=== PATIENT | female | born 1940 | race Caucasian/White ===

== ENCOUNTER 2016-12-29 10:20 | Outpatient (CLI) | payer MEDICARE, MEDICAID ==
[~2016-12-29] VITALS: Ht 165.1 cm; Wt 80.3 kg
[2016-12-29] MEDS ORDERED: POTA10CA43 PO (10:37)
[2016-12-29] MEDS ORDERED: LEVO50TA6 PO (10:37)
[2016-12-29] MEDS ORDERED: FISH1CAP15 PO (10:37)
[2016-12-29] MEDS ORDERED: VITA1CAP16 PO (10:37)
[2016-12-29] MEDS ORDERED: ASPI-999 PO (10:37)
[2016-12-29 10:48] VITALS: BP 143/84
[2016-12-29 11:24] LABS: BASOPHILS % (AUTO) 0 % (0-10); EOSINOPHILS # (AUTO) 0.4 10^3/uL (0.0-0.3); EOSINOPHILS % (AUTO) 4 % (0-10); LYMPHOCYTES # (AUTO) 3.1 X 10^3 (1.0-4.0); LYMPHOCYTES % (AUTO) 26 % (12-44); MEAN CORPUSCULAR HEMOGLOBIN 31 PG (25-34); MEAN CORPUSCULAR HGB CONC 33 G/DL (32-36); MEAN CORPUSCULAR VOLUME 95 FL (80-99); MEAN PLATELET VOLUME 11.7 FL (7.4-10.4); MONOCYTES # (AUTO) 1.5 X 10^3 (0.0-1.0); MONOCYTES % (AUTO) 13 % (0-12); NEUTROPHILS # (AUTO) 6.7 X 10^3 (1.8-7.8); NEUTROPHILS % (AUTO) 57 % (42-75); PLATELET COUNT 197 10^3/uL (130-400); RED BLOOD COUNT 4.63 10^6/uL (4.35-5.85); RED CELL DISTRIBUTION WIDTH 12.9 % (10.0-14.5); WHITE BLOOD COUNT 11.6 10^3/uL (4.3-11.0)
[2016-12-29 11:47] LABS: ANION GAP 11 MMOL/L (5-14); BLOOD UREA NITROGEN 9 MG/DL (7-18); BUN/CREATININE RATIO 13; CALCIUM 9.9 MG/DL (8.5-10.1); CARBON DIOXIDE 26 MMOL/L (21-32); CHLORIDE 105 MMOL/L (98-107); GFR ESTIMATED > 60; GLUCOSE 107 MG/DL (70-105); POTASSIUM 4.1 MMOL/L (3.6-5.0); SODIUM 142 MMOL/L (135-145)
== END 2016-12-29 12:37 | disposition home or self-care (01) ==
LOC: PREOP 10:20
PROVIDERS: ATTEND Orthopaedic Surgery
DX: Z01.812 Encounter for preprocedural laboratory examination (principal); Z11.2 Encounter for screening for other bacterial diseases; S82.899A Other fracture of unspecified lower leg, initial encounter for closed fracture; X58.XXXA Exposure to other specified factors, initial encounter
CPT/HCPCS: 36415; 80048; 85025; 87081

== ENCOUNTER 2017-01-04 05:59 | Day surgery (SDC) | payer MEDICARE, MEDICAID ==
[~2017-01-04] VITALS: Ht 165.1 cm; Wt 80.3 kg
[~2017-01-04 05:59] MED LIST: ASPI-999 PO; FISH1CAP15 PO; LEVO50TA6 PO; POTA10CA43 PO; VITA1CAP16 PO
[2017-01-04 06:20] VITALS: BP 167/55
[2017-01-04] MEDS ORDERED: LACTATED RINGERS 1,000 ML IV PRN (06:22)
[2017-01-04] MEDS ORDERED: FLUMAZENIL (ROMAZICON) 0.1 MG/ML 5 ML VIAL ONE (06:43)
[2017-01-04] MEDS ORDERED: LIDOCAINE PF 0.5% 50 ML (XYLOCAINE) VIAL ONE (06:43)
[2017-01-04] MEDS ORDERED: MIDAZOLAM 2 MG/2 ML (VERSED) VIAL ONE (06:43)
[2017-01-04] MEDS ORDERED: proPOfol 200 MG/20 ML (DIPRIVAN) VIAL IV ONE (06:43)
[2017-01-04] MEDS ORDERED: fentaNYL INJECTION 100 MCG/2 ML AMP ONE ×2 (06:43→08:49)
[2017-01-04] MEDS ORDERED: SEVOFLURANE (ULTANE) 15 ML INHAL SOLN ONE ×7 (06:43→08:59)
[2017-01-04] MEDS ORDERED: ONDANSETRON 4 MG/2 ML (SDV) Z0FRAN ONE ×2 (06:43→06:55)
[2017-01-04] MEDS ORDERED: BUPIVACAINE 0.5% 30 ML (SENSORCAINE) VIAL ONE (07:03)
[2017-01-04] MEDS ORDERED: CIPROFLOXACIN IV 400MG/200ML 200 ML IV ONE (07:12)
--- NOTE | 2017-01-04 07:20 | Progress Note-Pre Operative ---
Pre-Operative Progress Note H&P Reviewed The H&P was reviewed, patient examined and no changes noted. Date Seen by Provider: Jan 04, 2017 Time Seen by Provider: 07:11 Date H&P Reviewed: Jan 04, 2017 Time H&P Reviewed: 07:07 Pre-Operative Diagnosis: left ankle medial and lateral malleolus fractures, closed, displaced ELIEZER LEAL MD Jan 04, 2017 07:20
--- NOTE | 2017-01-04 07:22 | Progress Note-Post Operative ---
Post-Operative Progess Note Surgeon (s)/Patient Ambassador (s) Surgeon ELIEZER LEAL MD Patient Ambassador: None Pre-Operative Diagnosis left ankle medial and lateral malleolus fractures, closed, displaced Post-Operative Diagnosis left ankle medial and lateral malleolus fractures, closed, displaced Procedure & Operative Findings Date of Procedure 01/04/17 Procedure Performed/Findings Open reduction and internal fixation of left medial and lateral malleoli Anesthesia Type GETA Estimated Blood Loss Estimated blood loss (mL): 50 ml Specimens/Packing Specimens Removed none Packing: none ELIEZER LEAL MD Jan 04, 2017 07:22
[2017-01-04] MEDS ORDERED: HYDR4TAB49 PO (07:24)
[2017-01-04] MEDS ORDERED: HYDROmorphone (DILAUDID) 4 MG TAB PO PRN (07:30)
[2017-01-04] MEDS ORDERED: CATHETER FLUSH 10 ML SYR IV PRN (07:30)
[2017-01-04] MEDS ORDERED: CIPROFLOXACIN 400 MG/D5W 200 ML (PRE-MIX) IV ONE (07:30)
[2017-01-04] MEDS ORDERED: LABETALOL HCL 20 MG/4 ML VIAL ONE (08:15)
[2017-01-04] MEDS ORDERED: ONDANSETRON 4 MG/2 ML (SDV) Z0FRAN IVP PRN (09:00)
[2017-01-04] MEDS ORDERED: LACTATED RINGERS 2,000 ML IV ONE (09:00)
[2017-01-04] MEDS: morphine INJ 10 MG/ML 1ML (SYR OR VIAL) IVP PRN ×2 (09:35→09:41)
[2017-01-04 10:10] VITALS: BP 183/91
[2017-01-04 10:40] VITALS: BP 165/80
[2017-01-04 11:10] VITALS: BP 146/81
--- NOTE | 2017-01-04 11:16 | Diagnostic Imaging Report ---
INDICATION: Left ankle pain. FINDINGS: Three views of the left ankle were obtained during open reduction and internal fixation of the left ankle fractures. Two screws are seen fusing the medial malleolus in good alignment. There is a plate with multiple screws fusing the distal fibular fracture in good alignment. 12 seconds of fluoroscopy time was used in Surgery. IMPRESSION: Anatomic alignment status post ORIF of the left ankle fractures. Dictated by: Dictated on workstation # [id number]
--- NOTE | 2017-01-04 12:46 | OPERATIVE REPORT ---
PROCEDURE PHYSICIAN: ELIEZER LEAL DATE OF PROCEDURE: 01/04/2017 PREOPERATIVE DIAGNOSIS: 1. Closed displaced left medial malleolus fracture. 2. Closed displaced left lateral malleolus fracture. POSTOPERATIVE DIAGNOSIS: 1. Closed displaced left medial malleolus fracture. 2. Closed displaced left lateral malleolus fracture. PROCEDURES: 1. Open reduction internal fixation left medial malleolus. 2. Open reduction and internal fixation of left lateral malleolus. SURGEON: Dr. Leal. SAND DRIER: None. ANESTHESIA: General endotracheal by Scott Chen CRNA. TOURNIQUET TIME: 57 minutes at 300 mmHg. ESTIMATED BLOOD LOSS: 50 mL. DRAINS: None. COMPLICATIONS: None. MATERIALS: Synthes 6 hole 1/3rd tubular plate and two 4 partially threaded cancellous screws medially. The patient was transported to recovery room in awake and in stable condition. POSTOPERATIVE PLAN: Protected activities for 6 to 8 weeks. STATEMENT OF MEDICAL NECESSITY: The patient is a 76-year-old female who a week ago fell at the [place] [facility] by report and presented to the [place] emergency room where she was found to have a trimalleolar fracture-dislocation which by report was closed and neurovascularly intact. She underwent closed reduction in the emergency department in [place], was placed in a splint and referred for definitive treatment as there is no orthopedic physician in [place] anymore. The patient denied paresthesias. Postreduction radiographs revealed well aligned mortise. Due to the displaced and unstable nature of the fracture, it was recommended that the patient undergo operative fixation. PROCEDURE: After risks and benefits of the procedure were discussed and questions were answered an informed consent was signed and placed on chart. The operative site was confirmed in the preoperative holding and initialed by the surgeon. The patient was then transported to the operating room. After adequate levels of general endotracheal anesthetic were obtained, a timeout was called confirming the operative site. The left lower extremity was prepped and draped usual sterile fashion. With the leg elevated, the tourniquet was inflated to 300 mmHg. A standard lateral approach was utilized over the distal fibula. The underlying soft tissues were carefully dissected. The fracture site was identified and reduced anatomically after irrigating the fracture site. A single 3.5 fully threaded cortical screw was placed in a lag fashion and a 6 hole 1/3rd tubular plate was then placed with 3 cancellous screws placed distally and 3 cortical screws placed proximally all with good purchase obtained. Fluoroscopy in AP and lateral planes revealed well reduced fracture and well-placed hardware. This wound was then irrigated and incision was made medially, extending distally. The medial malleolus fragment was small but exposed and two 4 partially threaded cancellous screws were placed across fracture site with good purchase obtained. Viewing intra-articularly, there was no intra-articular penetration. Fluoroscopy in AP and lateral planes revealed well-placed hardware with a stable construct. While viewing fluoroscopically, the posterior aspect was stressed and the posterior fragment was found to be stable. The wounds were then copiously irrigated. 2-0 Vicryl was used to reapproximate the deep subcutaneous tissue on the medial and lateral incisions and both skin incisions were closed with 4-0 nylon in horizontal mattress interrupted fashion. The incisions were infiltrated with plain Marcaine. The tourniquet was deflated prior to wound closure medially. A soft dressing was applied followed by posterior splint with a U. The patient was then transported to the recovery room, awake and in stable condition. Job ID: [id number] Dictated Date: 01/04/2017 09:22:45 Clerk Guide Date: 01/04/2017 12:26:50 / margarita
--- OUTSIDE RECORDS SUMMARY | 2017-01-04 17:45 | XMS REPORT ---
Author CARMENZA Joiner Organization [employer] Address Unknown Phone Unavailable Care Team Providers Care Optical Goods Drilling Machine Operator Name Role Phone CARMENZA CHOWDARY CP Unavailable Allergies, Adverse Reactions, Alerts Substance Reaction Event Type sulfa drugs Info Not Available Drug Allergy Penicillin G Sodium Info Not Available Drug Allergy Codeine Sulfate Info Not Available Drug Allergy Problems Problem Type Condition Code Onset Dates Condition Status Assessment Caries K02.9 Active Medications Medication Code System Code Instructions Start Date End Date Status Dosage Aspir-[address] [facility] [id number] not defined Thyroid [facility] [id number] not defined Potassium NDC 0 not defined Procedures Procedure Coding System Code Date EXTRAC ERUPTED TOOTH/EXPOSED ROOT CPT-4 D7140 September 29, 2015 SURG REMOVAL ERUPTED TOOTH CPT-4 D7210 September 22, 2015 EXTRAC ERUPTED TOOTH/EXPOSED ROOT CPT-4 D7140 September 22, 2015 SURG REMOVAL ERUPTED TOOTH CPT-4 D7210 September 22, 2015 Vital Signs Date/Time: September 29, 2015 Blood Pressure Diastolic 72 mmHg Blood Pressure Systolic 157 mmHg Results No Known Results Summary Purpose [employer] Submission
--- OUTSIDE RECORDS SUMMARY | 2017-01-04 17:46 | XMS REPORT ---
Author CARMENZA Joiner [facility] [employer] Address Unknown Phone Unavailable Care Team Providers Care Account Manager Relief Name Role Phone CARMENZA CHOWDARY CP Unavailable Allergies, Adverse Reactions, Alerts Substance Reaction Event Type sulfa drugs Info Not Available Drug Allergy Penicillin G Sodium Info Not Available Drug Allergy Codeine Sulfate Info Not Available Drug Allergy Problems Problem Type Condition Code Onset Dates Condition Status Assessment Dental caries K02.9 Active Assessment Dental examination Z01.20 Active Medications Medication Code System Code Instructions Start Date End Date Status Dosage Thyroid NDC [address]-20 not defined Potassium NDC 0 not defined Procedures Procedure Coding System Code Date EXTRAC ERUPTED TOOTH/EXPOSED ROOT CPT-4 D7140 January 18, 2016 EXTRAC ERUPTED TOOTH/EXPOSED ROOT CPT-4 D7140 January 18, 2016 INTRAORL-PERIAPICAL 1 FILM 94800 CPT-4 D0220 January 18, 2016 Vital Signs Date/Time: January 18, 2016 Blood Pressure Diastolic 71 mmHg Blood Pressure Systolic 145 mmHg Results No Known Results Summary Purpose [employer] Submission
--- OUTSIDE RECORDS SUMMARY | 2017-01-04 17:46 | XMS REPORT ---
Author Author CARMENZA CHOWDARY [facility] Address Unknown Care Team Providers Care Transportation Attendant Name Role Phone CARMENZA CHOWDARY Unavailable PROBLEMS Type Condition ICD9-CM Code [id number] Code Onset Dates Condition Status SNOMED Code Assessment Dental examination Z01.20 Jan, Active [id number] ALLERGIES Substance Reaction Event Type Date Status sulfa drugs Unknown Drug Allergy Jan, Active Penicillin G Sodium Unknown Drug Allergy Jan, Active Codeine Sulfate Unknown Drug Allergy Jan, Active SOCIAL HISTORY No smoking Hx information available PLAN OF CARE VITAL SIGNS Blood pressure systolic 153 mmHg 2016-03-02 Blood pressure diastolic 79 mmHg 2016-03-02 MEDICATIONS Medication Instructions Dosage Frequency Start Date End Date Duration Status Vitamin B Complex Active Fish Oil Active Potassium Active Levothyroxine Sodium Active RESULTS No Results PROCEDURES Procedure Date Ordered Related Diagnosis Body Site COMP ORAL EVALUATION - NEW/EST PT Mar 02, 2016 BITEWINGS - FOUR FILMS Mar 02, 2016 PANORAMIC FILM SEE ALSO CODE [id number] Mar 02, 2016 IMMUNIZATIONS No Known Immunizations
--- OUTSIDE RECORDS SUMMARY | 2017-01-04 17:46 | XMS REPORT ---
Author JOVAN Barcenas Organization [employer] Address Unknown Phone Unavailable Care Team Providers Care Technical Operations Specialist Name Role Phone JOVAN SHEPHERD CP Unavailable Allergies, Adverse Reactions, Alerts Substance Reaction Event Type sulfa drugs Info Not Available Drug Allergy Penicillin G Sodium Info Not Available Drug Allergy Codeine Sulfate Info Not Available Drug Allergy Problems Problem Type Condition Code Onset Dates Condition Status Assessment Encounter for dental examination Z01.20 Active Medications Medication Code System Code Instructions Start Date End Date Status Dosage Aspir-81 [facility] [id number] not defined Potassium NDC 0 not defined Thyroid [facility] [id number] not defined Procedures Procedure Coding System Code Date INTRAORL-PERIAPICAL 1 FILM 06281 CPT-4 D0220 Jul 09, 2015 INTRAORL-PERIAPICAL 1 FILM 10622 CPT-4 D0220 Jul 09, 2015 LTD ORAL EVALUATION - PROBLEM FOCUS CPT-4 D0140 Jul 09, 2015 BITEWING - SINGLE FILM CPT-4 D0270 Jul 09, 2015 Vital Signs Date/Time: Jul 09, 2015 Blood Pressure Diastolic 74 mmHg Blood Pressure Systolic 154 mmHg Results No Known Results Summary Purpose [employer] Submission
--- OUTSIDE RECORDS SUMMARY | 2017-01-04 17:46 | XMS REPORT ---
Author JOVAN Barcenas Organization [employer] Address Unknown Phone Unavailable Care Team Providers Care Marine Engine Machinist Apprentice Name Role Phone JOVAN SHEPHERD CP Unavailable Allergies, Adverse Reactions, Alerts Substance Reaction Event Type sulfa drugs Info Not Available Drug Allergy Penicillin G Sodium Info Not Available Drug Allergy Codeine Sulfate Info Not Available Drug Allergy Problems Problem Type Condition Code Onset Dates Condition Status Assessment Dental caries K02.9 Active Medications Medication Code System Code Instructions Start Date End Date Status Dosage Aspir-81 [facility] [id number] not defined Potassium NDC 0 not defined Thyroid [facility] [id number] not defined Procedures Procedure Coding System Code Date EXTRAC ERUPTED TOOTH/EXPOSED ROOT CPT-4 D7140 Jul 09, 2015 Vital Signs Date/Time: Jul 16, 2015 Blood Pressure Diastolic 81 mmHg Blood Pressure Systolic 131 mmHg Results No Known Results Summary Purpose [employer] Submission
--- OUTSIDE RECORDS SUMMARY | 2017-01-04 17:46 | XMS REPORT ---
Author CARMENZA Joiner Organization [employer] Address Unknown Phone Unavailable Care Team Providers Care Dispatcher Tugboat Name Role Phone CARMENZA CHOWDARY CP Unavailable Allergies, Adverse Reactions, Alerts Substance Reaction Event Type sulfa drugs Info Not Available Drug Allergy Penicillin G Sodium Info Not Available Drug Allergy Codeine Sulfate Info Not Available Drug Allergy Problems Problem Type Condition Code Onset Dates Condition Status Assessment Dental examination Z01.20 Active Medications No Known Medications Procedures Procedure Coding System Code Date INTRAORL-PERIAPICAL 1 FILM 27323 CPT-4 D0220 September 22, 2015 Billing Notes on claim CPT-4 EC109 September 22, 2015 LTD ORAL EVALUATION - PROBLEM FOCUS CPT-4 D0140 September 22, 2015 Vital Signs Date/Time: September 22, 2015 Blood Pressure Diastolic 79 mmHg Blood Pressure Systolic 158 mmHg Results No Known Results Summary Purpose [employer] Submission
== END 2017-01-04 11:30 | disposition home or self-care (01) ==
LOC: SDC 05:59
PROVIDERS: ATTEND Orthopaedic Surgery
DX: S82.62XA Displaced fracture of lateral malleolus of left fibula, initial encounter for closed fracture (principal); S82.52XA Displaced fracture of medial malleolus of left tibia, initial encounter for closed fracture; E03.9 Hypothyroidism, unspecified; Z79.899 Other long term (current) drug therapy; C34.90 Malignant neoplasm of unspecified part of unspecified bronchus or lung; J44.9 Chronic obstructive pulmonary disease, unspecified; Z87.891 Personal history of nicotine dependence; G43.909 Migraine, unspecified, not intractable, without status migrainosus

== ENCOUNTER → 2019-01-17 | Outpatient (CLI) | payer MEDICARE, MEDICAID ==
[~2019-01-17] MED LIST changes: +HYDR4TAB49 PO
--- NOTE | 2019-01-17 09:31 | Diagnostic Imaging Report ---
Patient History: SHORTNESS OF BREATH, COUGH. Technique: Two views of the chest Comparison: None FINDINGS: The lung volumes are normal. No focal consolidation is seen. Bibasilar opacities are noted representing atelectasis. No large pleural effusion or pneumothorax is seen. The cardiomediastinal silhouette is normal in size and contour. No acute osseous abnormality is seen. IMPRESSION: No focal consolidations. Mild bibasilar atelectasis. Dictated by: Dictated on workstation # [id number]
[2019-01-17 10:42] LABS: HEMATOCRIT 46 % (35-52); HEMOGLOBIN 14.7 G/DL (11.5-16.0); MEAN CORPUSCULAR HEMOGLOBIN 30 PG (25-34); MEAN CORPUSCULAR HGB CONC 32 G/DL (32-36); MEAN CORPUSCULAR VOLUME 95 FL (80-99); PLATELET COUNT 210 10^3/uL (130-400); RED CELL DISTRIBUTION WIDTH 12.9 % (10.0-14.5); WHITE BLOOD COUNT 9.6 10^3/uL (4.3-11.0)
[2019-01-17 10:43] LABS: MEAN PLATELET VOLUME 11.8 FL (7.4-10.4)
[2019-01-17 10:48] LABS: BASOPHILS % (AUTO) 0 % (0-10); EOSINOPHILS # (AUTO) 0.4 10^3/uL (0.0-0.3); EOSINOPHILS % (AUTO) 4 % (0-10); LYMPHOCYTES # (AUTO) 3.5 X 10^3 (1.0-4.0); LYMPHOCYTES % (AUTO) 37 % (12-44); MONOCYTES # (AUTO) 0.7 X 10^3 (0.0-1.0); MONOCYTES % (AUTO) 7 % (0-12); NEUTROPHILS % (AUTO) 52 % (42-75)
[2019-01-17 11:04] LABS: ALANINE AMINOTRANSFERASE 17 U/L (0-55); ALKALINE PHOSPHATASE 51 U/L (40-136); BILIRUBIN,TOTAL 0.4 MG/DL (0.1-1.0); BUN/CREATININE RATIO 19; CALCIUM 9.7 MG/DL (8.5-10.1); CARBON DIOXIDE 27 MMOL/L (21-32); CHLORIDE 104 MMOL/L (98-107); CREATININE SERUM 0.62 MG/DL (0.60-1.30); GFR ESTIMATED > 60; GLUCOSE 121 MG/DL (70-105); POTASSIUM 4.2 MMOL/L (3.6-5.0); SODIUM 144 MMOL/L (135-145)
[2019-01-17 11:05] LABS: ALBUMIN 4.5 GM/DL (3.2-4.5); BAND NEUTROPHILS 3 %; EOSINOPHILS % (MANUAL) 5 %; LYMPHOCYTES % (MANUAL) 35 %; MONOCYTES % (MANUAL) 6 %; TOTAL PROTEIN 7.1 GM/DL (6.4-8.2)
[2019-01-17 11:06] LABS: NEUTROPHILS % (MANUAL) 51 %; RBC MORPH NORMAL
== END ==
LOC: LAB FS 09:12
PROVIDERS: ATTEND Family Medicine
DX: J98.11 Atelectasis (principal)
CPT/HCPCS: 36415; 71046; 80053; 83036; 83880; 85007; 85027

== ENCOUNTER → 2019-01-29 | Outpatient (CLI) | payer MEDICARE, MEDICAID | LOC: CARD 10:10 | PROVIDERS: ATTEND Family Medicine | DX: I34.0 Nonrheumatic mitral (valve) insufficiency (principal) | CPT/HCPCS: 93306 ==

== ENCOUNTER → 2019-02-06 | Outpatient (CLI) | payer MEDICARE, MEDICAID ==
[~2019-02-06] MED LIST changes: +CATHETER FLUSH 10 ML SYR IV PRN; +HOLD METFORMIN - RECEIVED CONTRAST 20 ML VIAL IV SCH; +IOHEXOL 350 MG/ML 100 ML (OMNIPAQUE 350) VIAL IV ONE; +NS 100 ML (IVPB) BAG IV ONE
[2019-02-06 13:17] LABS: BUN/CREATININE RATIO 15; CREATININE SERUM 0.66 MG/DL (0.60-1.30); GFR ESTIMATED > 60
--- NOTE | 2019-02-06 14:15 | Diagnostic Imaging Report ---
PROCEDURE: CT chest with contrast only. TECHNIQUE: Multiple contiguous axial images were obtained through the chest after administration of intravenous contrast. Auto Exposure Controls were utilized during the CT exam to meet ALARA standards for radiation dose reduction. INDICATION: Shortness of breath and right-sided chest pain for one month. Patient has prior history of lung cancer on the left. COMPARISON: No prior studies are available for comparison. FINDINGS: No axillary lymphadenopathy is seen. No definite hilar or mediastinal lymphadenopathy is detected. There is volume loss on the left. It appears to be secondary to left upper lobectomy. No pericardial or pleural fluid is detected. No parenchymal infiltrate, nodule, or mass is detected. Mildly prominent subpleural interstitial markings are seen, likely owing to scarring. The upper abdomen is unremarkable. IMPRESSION: Postop changes of the left chest. No thoracic lymphadenopathy or evidence of recurrent mass is seen. Dictated by: Dictated on workstation # [id number]
== END ==
LOC: RAD FS 12:27
PROVIDERS: ATTEND Family Medicine
DX: R06.02 Shortness of breath (principal); R07.89 Other chest pain; Z90.2 Acquired absence of lung [part of]; Z85.118 Personal history of other malignant neoplasm of bronchus and lung
CPT/HCPCS: 36415; 71260; 82565; 84520

== ENCOUNTER → 2019-12-31 | Outpatient (CLI) | payer MEDICARE, MEDICAID ==
[2019-12-31 09:33] LABS: BUN/CREATININE RATIO 9; CREATININE SERUM 0.76 MG/DL (0.60-1.30); GFR ESTIMATED > 60
--- NOTE | 2019-12-31 11:52 | Diagnostic Imaging Report ---
PROCEDURE: CT chest with contrast only. TECHNIQUE: Multiple contiguous axial images were obtained through the chest after administration of intravenous contrast. Auto Exposure Controls were utilized during the CT exam to meet ALARA standards for radiation dose reduction. INDICATION: Tobacco use, history of lung cancer, dyspnea. COMPARISON: 02/06/2019 FINDINGS: No significant adenopathy within the chest. No aneurysmal dilatation of the thoracic aorta. Scattered vascular calcifications. The heart is within normal limits in size. No pericardial effusion. No pleural effusion. Postsurgical changes of a left upper lobectomy are again noted with associated volume loss and scarring. Bilateral reticular opacities and subpleural interstitial opacities are again identified bilaterally. No new focal pulmonary opacity or nodule. 1 cm hypodensity within the left hepatic lobe is unchanged. The visualized upper abdomen is otherwise unremarkable. Osseous structures are stable with scattered osseous degenerative changes with out acute osseous abnormality. Mild chronic vertebral body height loss within the mid thoracic spine is stable. IMPRESSION: Postsurgical changes associated with the left lung without evidence of residual or recurrent neoplasm. Mild background interstitial lung disease. Additional stable findings as above. Dictated by: Dictated on workstation # [id number]
== END ==
LOC: RT 12-18 07:14
PROVIDERS: ATTEND Nurse Practitioner Family
DX: J45.998 Other asthma (principal); J30.9 Allergic rhinitis, unspecified; J84.89 Other specified interstitial pulmonary diseases; I99.8 Other disorder of circulatory system; K76.89 Other specified diseases of liver; F17.211 Nicotine dependence, cigarettes, in remission; M19.90 Unspecified osteoarthritis, unspecified site; M51.34 Other intervertebral disc degeneration, thoracic region; Z90.2 Acquired absence of lung [part of]; Z85.118 Personal history of other malignant neoplasm of bronchus and lung; Z98.890 Other specified postprocedural states
CPT/HCPCS: 36415; 71260; 82565; 84520

== ENCOUNTER → 2020-01-20 | Outpatient (CLI) | payer MEDICARE, MEDICAID ==
[~2020-01-20] MED LIST changes: -CATHETER FLUSH 10 ML SYR IV PRN; -HOLD METFORMIN - RECEIVED CONTRAST 20 ML VIAL IV SCH; -IOHEXOL 350 MG/ML 100 ML (OMNIPAQUE 350) VIAL IV ONE; -NS 100 ML (IVPB) BAG IV ONE; +RT-ALBUTEROL SULF 2.5 MG/3 ML PRE-MIX VIAL INH ONE
== END ==
LOC: RT 12:26
PROVIDERS: ATTEND Nurse Practitioner Family
DX: J30.9 Allergic rhinitis, unspecified (principal); J45.998 Other asthma; F17.211 Nicotine dependence, cigarettes, in remission; Z85.118 Personal history of other malignant neoplasm of bronchus and lung
CPT/HCPCS: 94060; 94726; 94729

== ENCOUNTER → 2020-09-24 | Outpatient (CLI) | payer MEDICARE, MEDICAID ==
[~2020-09-24] MED LIST changes: -RT-ALBUTEROL SULF 2.5 MG/3 ML PRE-MIX VIAL INH ONE
--- NOTE | 2020-09-24 13:50 | Diagnostic Imaging Report ---
PROCEDURE: CT chest without contrast. TECHNIQUE: Multiple contiguous axial images were obtained through the chest without the use of intravenous contrast. Auto Exposure Controls were utilized during the CT exam to meet ALARA standards for radiation dose reduction. INDICATION: Shortness of breath, history of lung cancer. The previous CT chest exam of 12/31/2019 noted postsurgical changes associated with the left lung including volume loss and scar formation. There is no sign of recurrent or residual malignancy. On this exam the postsurgical changes are again evident and not significantly changed. The small 6 mm irregular parenchymal density in the left apex seen on the previous exam and the prior study of 02/06/2019 is again evident and does not appear to have changed significantly. There is no new parenchymal abnormality identified. The chronic pulmonary changes noted previously are again evident and essentially no different. There is no sign of failure, pneumonia or pleural effusion to indicate an acute abnormality. The heart size is within normal limits and stable. Coronary artery calcifications are again noted. The ascending aorta is not abnormally dilated. There is no obvious mediastinal or hilar adenopathy. The thyroid gland where visualized is unremarkable. There is no definite breast mass noted. The sections through the upper abdomen failed to show any sign of an acute abnormality. The bone windows are unremarkable for a fracture or for a destructive lesion. IMPRESSION: 1. The postsurgical changes involving the left chest seen previously are again evident and appear stable. There is no sign of recurrent malignancy. 2. There are chronic pulmonary changes evident but there is no acute cardiopulmonary abnormality identified. Dictated by: Dictated on workstation # [id number]
== END ==
LOC: RAD FS 12:13
PROVIDERS: ATTEND Nurse Practitioner Family
DX: J98.4 Other disorders of lung (principal); Z85.118 Personal history of other malignant neoplasm of bronchus and lung
CPT/HCPCS: 71250

== ENCOUNTER 2020-10-14 15:32 | Emergency (ER) | payer MEDICARE, MEDICAID ==
[~2020-10-14] VITALS: Ht 165.1 cm; Wt 79.4 kg
--- NOTE | 2020-10-14 15:34 | ED Chest Pain ---
General Stated Complaint: CHEST PAIN,SOA History of Present Illness Date Seen by Provider: Oct 14, 2020 Time Seen by Provider: 15:34 Initial Comments 79-year-old female presents with feeling of dyspnea, chest pressure. She reports has been going on for at least a year. She is scheduled on 10/20/2020 to see a specialty molder. She has no acute findings today. Patient presents because she was visiting with a a medical provider on the phone and they told her to come to the ER for further evaluation. Patient reports that the symptoms wax and wane but are always present. That she can just be sitting there and then developed worsening dyspnea. She denies any cough, diaphoresis, radiation of the pain. Allergies and Home Medications Allergies Coded Allergies: Penicillins (Verified Allergy, Severe, ANAPHYLAXIS, 01/04/17) calcitonin (Verified Allergy, Intermediate, RASH, 12/29/16) latex (Verified Allergy, Intermediate, RASH, 12/29/16) pneumococcal vaccine (Verified Allergy, Intermediate, RASH, 12/29/16) milnacipran (Verified Allergy, Unknown, 12/29/16) Sulfa (Sulfonamide Antibiotics) (Verified Adverse Reaction, Intermediate, GI UPSET, 01/04/17) cephalexin (Verified Adverse Reaction, Intermediate, GI UPSET, 01/04/17) clindamycin (Verified Adverse Reaction, Intermediate, GI UPSET, 01/04/17) codeine (Verified Adverse Reaction, Intermediate, CONFUSION/CRYING, 01/04/17) gabapentin (Verified Adverse Reaction, Intermediate, CONFUSION, 01/04/17) oxycodone (Verified Adverse Reaction, Intermediate, GI UPSET, 01/04/17) sulfamethoxazole (Verified Adverse Reaction, Intermediate, DIARRHEA, CRAMPING, 01/04/17) topiramate (Verified Adverse Reaction, Intermediate, HEAD PAIN, HEADACHE, 01/04/17) triamcinolone (Verified Adverse Reaction, Intermediate, GI UPSET, 01/04/17) trimethoprim (Verified Adverse Reaction, Intermediate, DIARRHEA, CRAMPING, 01/04/17) vancomycin (Verified Adverse Reaction, Intermediate, HEAD PAIN, HEADACHE, 01/04/17) Home Medications Aspirin 81 Mg Tab.chew, 81 MG PO DAILY, (Reported) Fish Oil/Dha/Epa 1 Each Capsule, 2 EACH PO BID, (Reported) Hydromorphone HCl 4 Mg Tablet, 4 MG PO Q4H Prescribed by: ELIEZER LEAL on 01/04/17 0724 Levothyroxine Sodium 50 Mcg Tablet, 50 MCG PO DAILY, (Reported) Potassium Chloride 10 Meq Capsule.er, 10 MEQ PO DAILY, (Reported) Vitamin B Complex & Vit C No.3 1 Each Capsule, 1 EACH PO DAILY, (Reported) Patient Home Medication List Home Medication List Reviewed: Yes Review of Systems Review of Systems Constitutional: No chills, No fever Respiratory: See HPI Cardiovascular: See HPI Gastrointestinal: No Symptoms Reported Genitourinary: No Symptoms Reported Skin: no symptoms reported Psychiatric/Neurological: No Symptoms Reported Endocrine: No Symptoms Reported Hematologic/Lymphatic: No Symptoms Reported Past Dlxmmjz-Dnhdcb-Srxglo Hx Past Med/Social Hx: Reviewed Nursing Past Med/Soc Hx Physical Exam Vital Signs Vital Signs - First Documented 10/14/20 15:35 Temp 36.4 Pulse 75 Resp 21 B/P (MAP) 133/49 (77) Pulse Ox 98 O2 Delivery Room Air Capillary Refill : Height, Weight, BMI Height: '" Weight: lbs. oz. kg; BMI Method: General Appearance: No Apparent Distress HEENT: Normal ENT Inspection Neck: Non Tender, Supple Respiratory: Lungs Clear, Normal Breath Sounds, Other (Patient with mild dyspnea when talking) Cardiovascular: Regular Rate, Rhythm Gastrointestinal: Non Tender, Soft Extremity: Normal Capillary Refill, Normal Inspection Neurologic/Psychiatric: Alert, Oriented x3, Normal Mood/Affect, field mechanic II-XII Norm as Tested Skin: Normal Color, Warm/Dry Progress/Results/Core Measures Results/Orders Lab Results Laboratory Tests Test 10/14/20 16:00 Range/Units White Blood Count 11.3 H 4.3-11.0 10^3/uL Red Blood Count 4.57 4.35-5.85 10^6/uL Hemoglobin 14.0 11.5-16.0 G/DL Hematocrit 43 35-52 % Mean Corpuscular Volume 95 80-99 FL Mean Corpuscular Hemoglobin 31 25-34 PG Mean Corpuscular Hemoglobin Concent 32 32-36 G/DL Red Cell Distribution Width 12.7 10.0-14.5 % Platelet Count 211 130-400 10^3/uL Mean Platelet Volume 11.3 H 7.4-10.4 FL Immature Granulocyte % (Auto) 0 % Neutrophils (%) (Auto) 56 42-75 % Lymphocytes (%) (Auto) 31 12-44 % Monocytes (%) (Auto) 9 0-12 % Eosinophils (%) (Auto) 4 0-10 % Basophils (%) (Auto) 0 0-10 % Neutrophils # (Auto) 6.3 1.8-7.8 X 10^3 Lymphocytes # (Auto) 3.5 1.0-4.0 X 10^3 Monocytes # (Auto) 1.0 0.0-1.0 X 10^3 Eosinophils # (Auto) 0.4 H 0.0-0.3 10^3/uL Basophils # (Auto) 0.1 0.0-0.1 10^3/uL Immature Granulocyte # (Auto) 0.1 0.0-0.1 10^3/uL D-Dimer 0.43 0.00-0.49 UG/ML Sodium Level 144 135-145 MMOL/L Potassium Level 4.3 3.6-5.0 MMOL/L Chloride Level 109 H 98-107 MMOL/L Carbon Dioxide Level 28 21-32 MMOL/L Anion Gap 7 5-14 MMOL/L Blood Urea Nitrogen 14 7-18 MG/DL Creatinine 0.75 0.60-1.30 MG/DL Estimat Glomerular Filtration Rate > 60 BUN/Creatinine Ratio 19 Glucose Level 129 H 70-105 MG/DL Calcium Level 9.8 8.5-10.1 MG/DL Corrected Calcium 9.7 8.5-10.1 MG/DL Magnesium Level 1.8 1.6-2.4 MG/DL Total Bilirubin 0.2 0.1-1.0 MG/DL Aspartate Amino Transf (AST/SGOT) 9 5-34 U/L Alanine Aminotransferase (ALT/SGPT) 13 0-55 U/L Alkaline Phosphatase 54 40-136 U/L Troponin I < 0.30 <0.30 NG/ML C-Reactive Protein 0.92 H <0.50 MG/DL Pro-B-Type Natriuretic Peptide 138.1 H <75.0 PG/ML Total Protein 6.9 6.4-8.2 GM/DL Albumin 4.1 3.2-4.5 GM/DL Lipase 30 8-78 U/L My Orders Orders - MARY,FILIPE L DO Cbc With Automated Diff (10/14/20 15:39) Comprehensive Metabolic Panel (10/14/20 15:39) Fibrin Degradation Products (10/14/20 15:39) Lipase (10/14/20 15:39) Magnesium (10/14/20 15:39) Probnp Fs (10/14/20 15:39) Crp Fs (10/14/20 15:39) Chest Pa/Lat (2 View) (10/14/20 15:39) Ekg Tracing (10/14/20 15:39) Monitor-Rhythm Ecg Trace Only (10/14/20 15:39) Troponin I Fs (10/14/20 15:39) Rt Epinephrine (Racemic Epinephrine 2.25 (10/14/20 17:00) Hypertonic Saline 3% Neb (Rt-Hypertonic (10/14/20 17:00) Svn Small Volume Nebulizer (10/14/20 16:53) Rt Epinephrine (Racemic Epinephrine 2.25 (10/14/20 16:47) Medications Given in ED Current Medications Medications Dose Ordered Sig/Connor Route Start Time Stop Time Status Last Admin Dose Admin Epinephrine 0.5 ml ONCE ONCE INH 10/14/20 17:00 10/14/20 17:01 DC 10/14/20 16:58 0.5 ML Sodium Chloride Hypertonic 15 ml ONCE ONCE IH 10/14/20 17:00 10/14/20 17:01 DC 10/14/20 17:01 15 ML Vital Signs/I&O 10/14/20 10/14/20 15:35 16:10 Temp 36.4 Pulse 75 Resp 21 B/P (MAP) 133/49 (77) Pulse Ox 98 O2 Delivery Room Air Room Air Progress Progress Note : Progress Note Patient with slight elevation in white count and CRP. This is likely due to ve ry poor dentition that she states dentist will not work on due to numerous previous dental surgeries. Patient EKG is negative, CRP and chest x-ray are negative. This is a long standing issue has been going on for approximately a month. I did discuss with her could be something such as vocal cord dysfunction, GERD or other causes of dyspnea that she also needs to have evaluated. Patient does have a cardiology consult on 10/20/2020. Recommend she keeps that along with follow-up with her primary care provider. Patient discharged home in stable condition. Initial ECG Impression Date: Oct 14, 2020 Initial ECG Impression Time: 15:35 Initial ECG Rate: 82 Initial ECG Rhythm: Normal Sinus Initial ECG Impression: Nonspecific Changes Comment sinus rhythm, no acute finding. HR 82 Diagnostic Imaging Diagonstic Imaging: Xray Plain Films/CT/US/NM/MRI: chest Comments [facility] [facility]. [place], [place] NAME: DIANA CAMPA [facility] REC#: [id number] PT STATUS: REG ER : 1940 PHYSICIAN: FILIPE MARY DO ADMIT DATE: 10/14/20/ER FS Draft Date of Exam:10/14/20 CHEST PA/LAT (2 VIEW) INDICATION: Chest pain with shortness of breath, history of lung cancer. EXAMINATION: PA and lateral views of the chest were obtained at 3:53 p.m. COMPARISON: 01/17/2019. There is some left perihilar scarring or atelectasis with surgical sutures over the left perihilar region. There is no focal infiltrate, pneumothorax or pleural fluid. There is no overt bony abnormality in the chest. IMPRESSION: Postop changes of left perihilar region with no acute appearing abnormality. Departure Impression Primary Impression: Chronic dyspnea Disposition: 01 HOME, SELF-CARE Condition: Stable Departure-Patient Inst. Patient Instructions: Shortness of Breath (Dyspnea) Add. Discharge Instructions: Keep your already scheduled appointment with a specialty molder Follow-up with your primary care provider next week for continuation of care Start Flonase or other nasal steroid as directed on package twice a day FILIPE MARY DO Oct 14, 2020 15:34
--- NOTE | 2020-10-14 16:02 | Diagnostic Imaging Report ---
INDICATION: Chest pain with shortness of breath, history of lung cancer. EXAMINATION: PA and lateral views of the chest were obtained at 3:53 p.m. COMPARISON: 01/17/2019. There is some left perihilar scarring or atelectasis with surgical sutures over the left perihilar region. There is no focal infiltrate, pneumothorax or pleural fluid. There is no overt bony abnormality in the chest. IMPRESSION: Postop changes of left perihilar region with no acute appearing abnormality. Dictated by: Dictated on workstation # [id number]
[2020-10-14 16:15] LABS: BASOPHILS % (AUTO) 0 % (0-10); EOSINOPHILS % (AUTO) 4 % (0-10); HEMATOCRIT 43 % (35-52); LYMPHOCYTES % (AUTO) 31 % (12-44); MEAN CORPUSCULAR HEMOGLOBIN 31 PG (25-34); MEAN CORPUSCULAR HGB CONC 32 G/DL (32-36); MEAN CORPUSCULAR VOLUME 95 FL (80-99); MEAN PLATELET VOLUME 11.3 FL (7.4-10.4); MONOCYTES % (AUTO) 9 % (0-12); NEUTROPHILS # (AUTO) 6.3 X 10^3 (1.8-7.8); NEUTROPHILS % (AUTO) 56 % (42-75); PLATELET COUNT 211 10^3/uL (130-400); WHITE BLOOD COUNT 11.3 10^3/uL (4.3-11.0)
[2020-10-14 16:16] LABS: BASOPHILS # (AUTO) 0.1 10^3/uL (0.0-0.1); EOSINOPHILS # (AUTO) 0.4 10^3/uL (0.0-0.3); LYMPHOCYTES # (AUTO) 3.5 X 10^3 (1.0-4.0)
[2020-10-14 16:37] LABS: SODIUM 144 MMOL/L (135-145)
[2020-10-14 16:38] LABS: ALANINE AMINOTRANSFERASE 13 U/L (0-55); ALBUMIN 4.1 GM/DL (3.2-4.5); ALKALINE PHOSPHATASE 54 U/L (40-136); BILIRUBIN,TOTAL 0.2 MG/DL (0.1-1.0); BUN/CREATININE RATIO 19; CALCIUM 9.8 MG/DL (8.5-10.1); CARBON DIOXIDE 28 MMOL/L (21-32); CHLORIDE 109 MMOL/L (98-107); CREATININE SERUM 0.75 MG/DL (0.60-1.30); GFR ESTIMATED > 60; GLUCOSE 129 MG/DL (70-105); LIPASE 30 U/L (8-78); MAGNESIUM 1.8 MG/DL (1.6-2.4); POTASSIUM 4.3 MMOL/L (3.6-5.0); TOTAL PROTEIN 6.9 GM/DL (6.4-8.2)
[2020-10-14] MEDS ORDERED: RT-epiNEPHrine (RACEMIC) 2.25% 0.5 ML VIAL ONE (16:47)
[2020-10-14] MEDS ORDERED: RT-HYPERTONIC SALINE 3% 4 ML NEB IH ONE (17:00)
[2020-10-14] MEDS ORDERED: RT-epiNEPHrine (RACEMIC) 2.25% 0.5 ML VIAL INH ONE (17:00)
[2020-10-14 17:25] VITALS: BP 102/73
== END 2020-10-14 17:25 | disposition home or self-care (01) ==
LOC: EDUNIT# 15:32 → ER FS 15:34
DX: R06.00 Dyspnea, unspecified (principal); Z88.0 Allergy status to penicillin; Z88.1 Allergy status to other antibiotic agents; Z88.2 Allergy status to sulfonamides; Z88.5 Allergy status to narcotic agent; Z91.040 Latex allergy status; Z88.8 Allergy status to other drugs, medicaments and biological substances; Z79.82 Long term (current) use of aspirin
CPT/HCPCS: 36415; 71046; 80053; 83690; 83735; 83880; 84484; 85025; 85379; 86141; 93005; 93041

== ENCOUNTER → 2021-01-06 | Outpatient (CLI) | payer MEDICARE, MEDICAID ==
--- NOTE | 2021-01-06 12:26 | Diagnostic Imaging Report ---
Indication: Back pain Lumbar spine AP and lateral views of the lumbar spine show postoperative changes from anterior discectomy and fusion at L4-L5. Patient has also had dorsal fusion and laminectomies at L4-L5. As well as a dorsal fusion at L5-S1. There are degenerative disc changes at L1-L2 and L2-L3 with vacuum disc phenomena. IMPRESSION: Postoperative changes from dorsal fusion from L4 to S1 and anterior discectomy fusion at L4-L5. There are advanced degenerative disc changes at L1-L2 and L2-L3. There are no compression fractures. Alignment appears normal. Dictated by: Dictated on workstation # [id number]
== END ==
LOC: RAD FS 11:17
PROVIDERS: ATTEND Nurse Practitioner Family
DX: M51.16 Intervertebral disc disorders with radiculopathy, lumbar region (principal); Z98.1 Arthrodesis status
CPT/HCPCS: 72100

== ENCOUNTER → 2021-10-25 | Outpatient (CLI) | payer MEDICARE, MEDICAID ==
[2021-10-25 12:06] LABS: BASOPHILS % (AUTO) 0 % (0-10); EOSINOPHILS # (AUTO) 0.4 10^3/uL (0.0-0.3); EOSINOPHILS % (AUTO) 4 % (0-10); HEMATOCRIT 48 % (35-52); HEMOGLOBIN 15.7 g/dL (11.5-16.0); LYMPHOCYTES # (AUTO) 3.1 10^3/uL (1.0-4.0); LYMPHOCYTES % (AUTO) 29 % (12-44); MEAN CORPUSCULAR HEMOGLOBIN 31 pg (25-34); MEAN CORPUSCULAR HGB CONC 33 g/dL (32-36); MEAN CORPUSCULAR VOLUME 96 fL (80-99); MEAN PLATELET VOLUME 12.1 fL (9.0-12.2); MONOCYTES % (AUTO) 9 % (0-12); NEUTROPHILS # (AUTO) 6.3 10^3/uL (1.8-7.8); NEUTROPHILS % (AUTO) 58 % (42-75); PLATELET COUNT 182 10^3/uL (130-400); WHITE BLOOD COUNT 10.8 10^3/uL (4.3-11.0)
[2021-10-25 12:25] LABS: POTASSIUM 4.2 MMOL/L (3.6-5.0)
[2021-10-25 12:26] LABS: ALBUMIN 4.5 GM/DL (3.2-4.5); BILIRUBIN,TOTAL 0.3 MG/DL (0.1-1.0); CALCIUM 10.1 MG/DL (8.5-10.1); CREATININE SERUM 0.66 MG/DL (0.60-1.30); TOTAL PROTEIN 7.5 GM/DL (6.4-8.2)
--- NOTE | 2021-10-25 12:54 | Diagnostic Imaging Report ---
Indication: Dyspnea. Time of Exam: 11:41 AM Correlation is made with prior chest from 10/14/2020. Heart size is stable. Lungs appear to be fairly clear. Some mild interstitial changes. No parenchymal consolidation is seen. A slightly nodular density in the periphery of the right midlung is noted, indeterminate. No effusion or pneumothorax. Impression: Small nodular density in the periphery of right midlung, indeterminate. Close interval followup is recommended. If this does not resolve, CT chest would be recommended for further evaluation. Dictated by: Dictated on workstation # [id number]
== END ==
LOC: RAD FS 11:23
PROVIDERS: ATTEND Registered Nurse Emergency
DX: R91.8 Other nonspecific abnormal finding of lung field (principal); E03.9 Hypothyroidism, unspecified; E87.6 Hypokalemia; E78.5 Hyperlipidemia, unspecified; R06.00 Dyspnea, unspecified; R07.89 Other chest pain
CPT/HCPCS: 36415; 71046; 80053; 84443; 85025

== ENCOUNTER → 2021-10-27 | Outpatient (CLI) | payer MEDICARE, MEDICAID ==
[~2021-10-27] MED LIST changes: +CATHETER FLUSH 10 ML SYR IV PRN; +HOLD METFORMIN - RECEIVED CONTRAST 20 ML VIAL IV SCH; +IOHEXOL 350 MG/ML 100 ML (OMNIPAQUE 350) VIAL IV ONE; +NS 100 ML (IVPB) BAG IV ONE
--- NOTE | 2021-10-27 11:07 | Diagnostic Imaging Report ---
PROCEDURE: CT chest with contrast only. TECHNIQUE: Multiple contiguous axial images were obtained through the chest after administration of intravenous contrast. Auto Exposure Controls were utilized during the CT exam to meet ALARA standards for radiation dose reduction. INDICATION: History of lung cancer in the left upper lobe with lobectomy in 2006. Right midlung peripheral density present at recent radiograph. CT is performed to exclude new mass or recurrence. FINDINGS: Post surgical changes of a left upper lobectomy are present. There are emphysematous features in the lungs with some mild zones of bilateral subpleural scarring. No evidence for acute pneumonia. No lung mass or suspicious pulmonary nodule. No suspect lytic or sclerotic osseous lesion. No effusion or pneumothorax. No axillary, hilar, or mediastinal adenopathy. The visualized upper abdomen demonstrates intact adrenal glands with no acute or suspicious finding. IMPRESSION: Left upper lobectomy. Chronic COPD and mild subpleural fibrosis. The summation of peripheral fibrotic changes likely accounted for the radiographic opacity. There is no evidence for mass, nodule, or neoplasm. Dictated by: Dictated on workstation # [id number]
== END ==
LOC: RAD FS 08:30
PROVIDERS: ATTEND Registered Nurse Emergency
DX: J44.9 Chronic obstructive pulmonary disease, unspecified (principal); J84.10 Pulmonary fibrosis, unspecified; R91.1 Solitary pulmonary nodule; Z85.118 Personal history of other malignant neoplasm of bronchus and lung; Z90.2 Acquired absence of lung [part of]
CPT/HCPCS: 71260; Q9967

== ENCOUNTER → 2021-12-27 | Outpatient (CLI) | payer MEDICARE, MEDICAID ==
[~2021-12-27] MED LIST changes: -CATHETER FLUSH 10 ML SYR IV PRN; -HOLD METFORMIN - RECEIVED CONTRAST 20 ML VIAL IV SCH; -IOHEXOL 350 MG/ML 100 ML (OMNIPAQUE 350) VIAL IV ONE; -NS 100 ML (IVPB) BAG IV ONE; +RT-ALBUTEROL SULF 2.5 MG/3 ML PRE-MIX VIAL INH ONE
== END ==
LOC: RT 12:30
PROVIDERS: ATTEND Registered Nurse Emergency
DX: R06.00 Dyspnea, unspecified (principal)
CPT/HCPCS: 94060; 94726; 94729

== ENCOUNTER → 2022-03-02 | Outpatient (CLI) | payer MEDICARE, MEDICAID ==
[~2022-03-02] MED LIST changes: -RT-ALBUTEROL SULF 2.5 MG/3 ML PRE-MIX VIAL INH ONE
[2022-03-02 13:50] LABS: BASOPHILS % (AUTO) 0 % (0-10); EOSINOPHILS # (AUTO) 0.6 10^3/uL (0.0-0.3); EOSINOPHILS % (AUTO) 5 % (0-10); HEMATOCRIT 44 % (35-52); HEMOGLOBIN 14.4 g/dL (11.5-16.0); LYMPHOCYTES % (AUTO) 28 % (12-44); MEAN CORPUSCULAR HEMOGLOBIN 31 pg (25-34); MEAN CORPUSCULAR HGB CONC 32 g/dL (32-36); MEAN CORPUSCULAR VOLUME 95 fL (80-99); MEAN PLATELET VOLUME 11.7 fL (9.0-12.2); MONOCYTES % (AUTO) 9 % (0-12); NEUTROPHILS # (AUTO) 6.2 10^3/uL (1.8-7.8); NEUTROPHILS % (AUTO) 57 % (42-75); PLATELET COUNT 186 10^3/uL (130-400); WHITE BLOOD COUNT 10.8 10^3/uL (4.3-11.0)
[2022-03-02 14:09] LABS: ERYTHROCYTE SEDIMENTATION RATE 16 MM/HR (0-30)
== END ==
LOC: CARD 14:00
PROVIDERS: ATTEND Internal Medicine Critical Care Medicine
DX: I51.7 Cardiomegaly (principal); J84.9 Interstitial pulmonary disease, unspecified
CPT/HCPCS: 36415; 82085; 82550; 83516; 85025; 85652; 86021; 86038; 86039; 86160; 86200; 86225; 86235; 86431; 93306; 94621

== ENCOUNTER 2022-05-21 13:22 | Emergency (ER) | payer MEDICARE, MEDICAID ==
[~2022-05-21] VITALS: Ht 165 cm; Wt 79.4 kg
--- NOTE | 2022-05-21 13:30 | ED Cardiac General ---
History of Present Illness General Stated Complaint: LOW BP History of Present Illness Date Seen by Provider: May 21, 2022 Time Seen by Provider: 13:30 Initial Comments 81-year-old female is here to check her blood pressure because she had 1 blood pressure read at home that stated it was 78/45. Patient does not have any symptoms at this time. Denies chest pain, dizziness, lightheadedness, fainting, palpitations, dysuria. Pt is on Losartan but has nit been taking it regularly since her blood pressure has been normal for some time. Allergies and Home Medications Allergies Coded Allergies: Penicillins (Verified Allergy, Severe, ANAPHYLAXIS, 01/04/17) calcitonin (Verified Allergy, Intermediate, RASH, 12/29/16) latex (Verified Allergy, Intermediate, RASH, 12/29/16) pneumococcal vaccine (Verified Allergy, Intermediate, RASH, 12/29/16) milnacipran (Verified Allergy, Unknown, 12/29/16) Sulfa (Sulfonamide Antibiotics) (Verified Adverse Reaction, Intermediate, GI UPSET, 01/04/17) cephalexin (Verified Adverse Reaction, Intermediate, GI UPSET, 01/04/17) clindamycin (Verified Adverse Reaction, Intermediate, GI UPSET, 01/04/17) codeine (Verified Adverse Reaction, Intermediate, CONFUSION/CRYING, 01/04/17) gabapentin (Verified Adverse Reaction, Intermediate, CONFUSION, 01/04/17) oxycodone (Verified Adverse Reaction, Intermediate, GI UPSET, 01/04/17) sulfamethoxazole (Verified Adverse Reaction, Intermediate, DIARRHEA, CRAMPING, 01/04/17) topiramate (Verified Adverse Reaction, Intermediate, HEAD PAIN, HEADACHE, 01/04/17) triamcinolone (Verified Adverse Reaction, Intermediate, GI UPSET, 01/04/17) trimethoprim (Verified Adverse Reaction, Intermediate, DIARRHEA, CRAMPING, 01/04/17) vancomycin (Verified Adverse Reaction, Intermediate, HEAD PAIN, HEADACHE, 01/04/17) Patient Home Medication List Home Medication List Reviewed: Yes Aspirin (Aspirin) 81 Mg Tab.chew, 81 MG PO DAILY, (Reported) Entered as Reported by: VIVIAN GAINES on 12/29/16 1037 Fish Oil/Dha/Epa (Fish Oil 1,200 mg Fish Oil) 1 Each Capsule, 2 EACH PO BID, (Reported) Entered as Reported by: VIVIAN GAINES on 12/29/16 1037 Hydromorphone HCl (Dilaudid) 4 Mg Tablet, 4 MG PO Q4H Prescribed by: ELIEZER LEAL on 01/04/17 0724 Levothyroxine Sodium (Levothyroxine Sodium) 50 Mcg Tablet, 50 MCG PO DAILY, (Reported) Entered as Reported by: VIVIAN GAINES on 12/29/16 1037 Potassium Chloride (Potassium Chloride) 10 Meq Capsule.er, 10 MEQ PO DAILY, (Reported) Entered as Reported by: VIVIAN GAINES on 12/29/16 1037 Vitamin B Complex & Vit C No.3 (B Complex with Vitamin C) 1 Each Capsule, 1 EACH PO DAILY, (Reported) Entered as Reported by: VIVIAN GAINES on 12/29/16 1037 Review of Systems Review of Systems Constitutional: no symptoms reported EENTM: No Symptoms Reported Respiratory: No Symptoms Reported Cardiovascular: No Symptoms Reported Gastrointestinal: No Symptoms Reported Genitourinary: No Symptoms Reported Musculoskeletal: no symptoms reported Skin: no symptoms reported Psychiatric/Neurological: No Symptoms Reported Endocrine: No Symptoms Reported Hematologic/Lymphatic: No Symptoms Reported Past Cudhbwn-Aktjpq-Wzafaz Hx Seasonal Allergies Seasonal Allergies: Yes Past Medical History Surgeries: Yes (BILAT KNEE REPLACEMENT (LEFT X7), BACK FUSION X4, DENTAL, TRIGGER FINGER) Appendectomy, Section, Hysterectomy, Lobectomy, Oophorectomy Respiratory: Yes (CHEMICALLY INDUCED ASTHMA) COPD, Emphysema Cardiac: No Neurological: Yes (Early onset Alzheimer's) Dementia, Headaches /Migraines Reproductive Disorders: No Sexually Transmitted Disease: No HIV/AIDS: No Genitourinary: Yes UTI-Chronic Gastrointestinal: Yes (HX OF ADHESIONS) Chronic Constipation, Polyps Musculoskeletal: Yes (OSTEOARTHRITIS, RUPTURED DISCS) Arthritis, Chronic Back Pain, Fractures Endocrine: Yes Loss of Vision: Bilateral Hearing Impairment: Denies Cancer: Yes Lung Psychosocial: No Integumentary: No Blood Disorders: No Adverse Reaction/Blood Tranf: No (HAS HAD BLOOD WITH NO REACTION) Physical Exam Vital Signs Vital Signs - First Documented 05/21/22 13:26 Temp 36.5 Pulse 106 Resp 16 B/P (MAP) 165/73 (103) Pulse Ox 98 O2 Delivery Room Air Capillary Refill : Height, Weight, BMI Height: 5'5.00" Weight: 177lbs. 0.0oz. 80.577249nn; 29.00 BMI Method: General Appearance: No Apparent Distress, WD/WN, Anxious HEENT: PERRL/EOMI Neck: Full Range of Motion Respiratory: Chest Non Tender, Lungs Clear Cardiovascular: Regular Rate, Rhythm Gastrointestinal: Soft Neurologic/Psychiatric: Alert, Oriented x3 Skin: Normal Color Progress/Results/Core Measures Results/Orders Vital Signs/I&O 05/21/22 05/21/22 13:26 14:38 Temp 36.5 36.5 Pulse 106 87 Resp 16 16 B/P (MAP) 165/73 (103) 139/66 Pulse Ox 98 98 O2 Delivery Room Air Room Air Progress Progress Note : Progress Note 1. BP CHECK: - BP unremarkable in ER and has been around 135/ 60's the entire time in the ER - Asymptomatic in ER - Advised pt to follow up with PCP in the next 3 days -The patient was seen in the ED, and treated appropriately to presentation at a specific point in time. Patient is informed that there is a possibility that disease and illness can evolve and change in acuity rapidly or slowly after patient is discharged from the ER. Precautionary advice given to the patient for immediate return to ER if symptoms worsen or do not resolve, and to seek emergency care sooner rather than later. Pt also advised on the importance of PCP follow up and compliance with management and follow up plan with PCP and/or specialist, as this is part of the management plan. Pt verbally expressed understanding. Departure Impression Primary Impression: Blood pressure check Disposition: 01 HOME, SELF-CARE Condition: Stable Departure-Patient Inst. Referrals: LORETO GIBSON APRN (PCP) Primary Care Physician [facility] (Family) Primary Care Physician Patient Instructions: Checking Your Blood Pressure at Home, Dealing with Low Blood Pressure from the Drugs You Take Add. Discharge Instructions: Follow up with PCP in 3 days - Return to ER if symptoms develop BASSAM DILLON MD May 21, 2022 13:30
[2022-05-21 14:38] VITALS: BP 139/66
== END 2022-05-21 14:55 | disposition home or self-care (01) ==
LOC: EDUNIT# 13:22 → ER FS 13:24
DX: Z01.30 Encounter for examination of blood pressure without abnormal findings (principal); Z91.040 Latex allergy status
CPT/HCPCS: 99281

== ENCOUNTER 2023-02-24 10:35 | Emergency (ER) | payer MEDICARE, MEDICAID ==
[~2023-02-24] VITALS: Ht 165 cm; Wt 81.6 kg
[~2023-02-24 10:35] MED LIST changes: -POTA10CA43 PO; +POTA10CA84 PO
[2023-02-24] MEDS ORDERED: ASPIRIN 81 MG CHEWABLE TABLET PO ONE (10:45)
[2023-02-24] MEDS ORDERED: NITROGLYCERIN 2% OINT 1 GM UNIT DOSE PACKET TOP STA (10:52)
[2023-02-24 11:11] LABS: ALBUMIN 4.1 GM/DL (3.2-4.5)
[2023-02-24 11:12] LABS: CHLORIDE 104 MMOL/L (98-107); POTASSIUM 3.9 MMOL/L (3.6-5.0); SODIUM 138 MMOL/L (135-145)
[2023-02-24 11:13] LABS: AMYLASE 42 U/L (25-125); CALCIUM 9.9 MG/DL (8.5-10.1)
[2023-02-24 11:14] LABS: GLUCOSE 174 MG/DL (70-105); PROTHROMBIN TIME PATIENT 13.5 SEC (12.2-14.7); TOTAL PROTEIN 7.2 GM/DL (6.4-8.2)
[2023-02-24 11:15] LABS: CARBON DIOXIDE 24 MMOL/L (21-32)
[2023-02-24 11:16] LABS: BASOPHILS % (AUTO) 0 % (0-10); EOSINOPHILS # (AUTO) 0.4 10^3/uL (0.0-0.3); EOSINOPHILS % (AUTO) 5 % (0-10); HEMATOCRIT 41 % (35-52); HEMOGLOBIN 13.4 g/dL (11.5-16.0); LYMPHOCYTES # (AUTO) 2.8 10^3/uL (1.0-4.0); LYMPHOCYTES % (AUTO) 32 % (12-44); MEAN CORPUSCULAR HEMOGLOBIN 31 pg (25-34); MEAN CORPUSCULAR HGB CONC 33 g/dL (32-36); MEAN CORPUSCULAR VOLUME 96 fL (80-99); MEAN PLATELET VOLUME 10.8 fL (9.0-12.2); MONOCYTES # (AUTO) 0.9 10^3/uL (0.0-1.0); MONOCYTES % (AUTO) 10 % (0-12); NEUTROPHILS # (AUTO) 4.7 10^3/uL (1.8-7.8); NEUTROPHILS % (AUTO) 53 % (42-75); PLATELET COUNT 193 10^3/uL (130-400); WHITE BLOOD COUNT 8.8 10^3/uL (4.3-11.0)
[2023-02-24 11:16] LABS: BILIRUBIN,TOTAL 0.3 MG/DL (0.1-1.0)
[2023-02-24 11:17] LABS: ALKALINE PHOSPHATASE 47 U/L (40-136); CREATININE SERUM 0.72 MG/DL (0.60-1.30); FIBRIN DEGRADATION PRODUCTS 0.41 UG/ML (0.00-0.49); GFR ESTIMATED 83
[2023-02-24 11:18] LABS: BUN/CREATININE RATIO 15
[2023-02-24 11:20] LABS: ALANINE AMINOTRANSFERASE 15 U/L (0-55); MAGNESIUM 1.8 MG/DL (1.6-2.4)
[2023-02-24 11:21] LABS: LIPASE 32 U/L (8-78)
[2023-02-24 11:22] LABS: CREATINE KINASE 27 U/L (29-168)
[2023-02-24 11:28] LABS: CREATINE KINASE MB 0.8 NG/ML (<6.6)
--- NOTE | 2023-02-24 11:34 | Diagnostic Imaging Report ---
INDICATION: 1 month history of chest pain. Compared with radiographs 10/25/2021 and also correlated with more recent chest CT 01/19/2023. Abnormal mediastinal contour para-aortic and at the AP window corresponds to fatty deposition present at earlier CT and when differing modality taken into account not clearly changed. There is some linear fibrosis and atelectasis in the upper lobe laterally unchanged from CT but progressed from the prior radiograph. No new pulmonary opacity, effusion or pneumothorax. IMPRESSION: May be similar to its the findings at recent CT with mediastinal fatty prominence and some streaky fibrotic scarring and/or atelectasis in the left apex correlated with the recent chest CT. No obvious change or acute appearing abnormality. Dictated by: Dictated on workstation # [id number]
--- NOTE | 2023-02-24 11:39 | ED Chest Pain ---
General Chief Complaint: Chest Pain Stated Complaint: CHEST PAINS Nursing Triage Note: patient reports sent here by sleever. states chest pain with sob x1 month. states alzhiemers so she is forgetful. Source: patient (PT IS A POOR HISTORIAN, VERY POOR MEMORY), old records (ALL PMH IS FROM OLD RECORDS) History of Present Illness Date Seen by Provider: Feb 24, 2023 Time Seen by Provider: 10:37 Initial Comments PT ARRIVES VIA POV FROM HOME PT STATES SHE HAS HAD CHEST PAIN FOR OVER A MONTH PAIN IS CONSTANT AND RATES 5/10 NOTHING WORSENS OR IMPROVES PAIN, BUT HAS NOT TAKEN ANYTHING FOR PAIN PAIN IS IN LEFT UPPER CHEST/CLAVICLE AREA STATES IT IS A "HEAVINESS--LIKE A 20 POUND BAG OF TATERS ON MY CHEST" ON ASKING IF SHE FELT SHORT OF BREATH, SHE STATES THAT IT IS "HEAVY" TO BREATHE SHE IS UNABLE TO STATE IF SHE HAS HAD SWELLING IN HER LEGS/FEET OR NOT NO SWEATS NO NAUSEA/VOMITING NO DIZZINESS OR SYNCOPE NO PALPITATIONS SHE STATES HER BLOOD PRESSURE HAS BEEN HIGH LATELY, BUT DOES NOT KNOW ANY OF HER BLOOD PRESSURE READINGS OR HOW LONG THAT HAS BEEN GOING ON SHE HAS NOT TAKEN ANY OF HER MEDICATIONS TODAY, SHE DOES NOT REMEMBER IF SHE TOOK THEM YESTERDAY OR NOT--SHE DOES NOT KNOW ANY OF HER MEDICATIONS OR BRING A [place] OF HER MEDICATIONS WITH HER--ALL MEDS ARE OBTAINED FROM MED [facility] SHE HAS NOT SOUGHT CARE UNTIL TODAY SYMPTOMS NO DIFFERENT TODAY SHE STATES SHE WENT TO [facility] TODAY AND THEY SENT HER TO THE [facility] OFFICE--NOT SURE WHICH ONE, BUT SHE STATES SHE WENT THERE AND THEY SENT HER HERE SHE HAS NOT HAD AN EKG OR ANY TESTS DONE ANYWHERE. SHE DENIES HISTORY OF SIMILAR SHE STATES SHE HAS HTN AND "THE BEGINNINGS OF ALZHEIMER'S DEMENTIA" STATES SHE DOES NOT DRIVE ANYMORE BECAUSE SHE FORGETS WHERE SHE IS GOING OR HOW TO GET HOME. [facility] Allergies and Home Medications Allergies Coded Allergies: Penicillins (Verified Allergy, Severe, ANAPHYLAXIS, 01/04/17) calcitonin (Verified Allergy, Intermediate, RASH, 12/29/16) latex (Verified Allergy, Intermediate, RASH, 12/29/16) pneumococcal vaccine (Verified Allergy, Intermediate, RASH, 12/29/16) milnacipran (Verified Allergy, Unknown, 12/29/16) Sulfa (Sulfonamide Antibiotics) (Verified Adverse Reaction, Intermediate, GI UPSET, 01/04/17) cephalexin (Verified Adverse Reaction, Intermediate, GI UPSET, 01/04/17) clindamycin (Verified Adverse Reaction, Intermediate, GI UPSET, 01/04/17) codeine (Verified Adverse Reaction, Intermediate, CONFUSION/CRYING, 01/04/17) gabapentin (Verified Adverse Reaction, Intermediate, CONFUSION, 01/04/17) oxycodone (Verified Adverse Reaction, Intermediate, GI UPSET, 01/04/17) sulfamethoxazole (Verified Adverse Reaction, Intermediate, DIARRHEA, CRAMPING, 01/04/17) topiramate (Verified Adverse Reaction, Intermediate, HEAD PAIN, HEADACHE, 01/04/17) triamcinolone (Verified Adverse Reaction, Intermediate, GI UPSET, 01/04/17) trimethoprim (Verified Adverse Reaction, Intermediate, DIARRHEA, CRAMPING, 01/04/17) vancomycin (Verified Adverse Reaction, Intermediate, HEAD PAIN, HEADACHE, 01/04/17) Patient Home Medication List Home Medication List Reviewed: Yes Aspirin (Aspirin) 81 Mg Tab.chew, 81 MG PO DAILY, (Reported) Entered as Reported by: VIVIAN GAINES on 12/29/16 1037 Fish Oil/Dha/Epa (Fish Oil 1,200 mg Fish Oil) 1 Each Capsule, 2 EACH PO BID, (Reported) Entered as Reported by: VIVIAN GAINES on 12/29/16 1037 Hydromorphone HCl (Dilaudid) 4 Mg Tablet, 4 MG PO Q4H Prescribed by: ELIEZER LEAL on 01/04/17 0724 Levothyroxine Sodium (Levothyroxine Sodium) 50 Mcg Tablet, 50 MCG PO DAILY, (Reported) Entered as Reported by: VIVIAN GAINES on 12/29/16 1037 Potassium Chloride (Potassium Chloride) 10 Meq Capsule.er, 10 MEQ PO DAILY, (Reported) Entered as Reported by: VIVIAN GAINES on 12/29/16 1037 Vitamin B Complex & Vit C No.3 (B Complex with Vitamin C) 1 Each Capsule, 1 EACH PO DAILY, (Reported) Entered as Reported by: VIVIAN GAINES on 12/29/16 1037 Review of Systems Review of Systems Constitutional: no symptoms reported EENTM: No Symptoms Reported Respiratory: See HPI Cardiovascular: See HPI Gastrointestinal: No Symptoms Reported Genitourinary: No Symptoms Reported Musculoskeletal: no symptoms reported Skin: no symptoms reported Psychiatric/Neurological: Anxiety Endocrine: No Symptoms Reported Hematologic/Lymphatic: No Symptoms Reported Past Ievcwfy-Xodnvs-Qihywy Hx Patient Social History Tobacco Use?: No Substance use?: No Alcohol Use?: No Immunizations Up To Date First/Initial COVID19 Vaccinat: 08/31/2020 Second COVID19 Vaccination Bryan: 10/01/2020 Third COVID19 Vaccination Date: 08/31/2020 Seasonal Allergies Seasonal Allergies: Yes Past Medical History Surgeries: Yes (BILAT KNEE REPLACEMENT (LEFT X7), BACK FUSION X4, DENTAL, TRIGGER FINGER) Appendectomy, Section, Hysterectomy, Joint Replacement, Lobectomy, Oophorectomy, Orthopedic Respiratory: Yes (CHEMICALLY INDUCED ASTHMA; LUNG CANCER; INTERSTITIAL LUNG DZ) Asthma, COPD, Emphysema Cardiac: Yes Hypertension Neurological: Yes (Early onset Alzheimer's) Dementia, Headaches /Migraines Reproductive Disorders: No Sexually Transmitted Disease: No HIV/AIDS: No Genitourinary: Yes UTI-Chronic Gastrointestinal: Yes (HX OF ADHESIONS) Chronic Constipation, Polyps Musculoskeletal: Yes (OSTEOARTHRITIS, RUPTURED DISCS) Degenerate Disk Disease, Arthritis, Chronic Back Pain, Fractures Endocrine: Yes Hypothyroidsim, Diabetes, Non-Insulin dep HEENT: No Loss of Vision: Bilateral Hearing Impairment: Denies Cancer: Yes Lung Did You Recieve Any Treatments: Yes What Type of Treatment Did You: Surgical Intervention Psychosocial: No Integumentary: No Blood Disorders: No Adverse Reaction/Blood Tranf: No (HAS HAD BLOOD WITH NO REACTION) Family Medical History PAST SURGICAL HISTORY: -APPENDECTOMY - X 2 -HYSTERECTOMY--UNKNOWN IF SHE HAD OOPHORECTOMY -BACK FUSION X 4 -JAW SURGERY X 2 -ABDOMINAL EXPLORATORY LAP -RIGHT ELBOW -RIGHT FOOT -RIGHT KNEE SCOPE X 2 -LEFT KNEE SCOPE -LEFT KNEE REPLACEMENT X 7 -LEFT FOOT PLANTAR FASCIITIS -LEFT SHOULDER SCOPE -RIGHT TOTAL KNEE REPLACEMENT -RIGHT 5TH FINGER TRIGGER RELEASE -BILATERAL CATARACT SURGERY -LUNG LOBECTOMY FOR CANCER -LEFT ANKLE TRIMALLEOLAR FRACTURE ORIF 12/2016 Physical Exam Vital Signs Vital Signs - First Documented 02/24/23 02/24/23 10:50 10:54 Temp 37.0 Pulse 68 Resp 24 B/P (MAP) 194/93 (126) Pulse Ox 96 O2 Delivery Nasal Cannula O2 Flow Rate 2.00 Capillary Refill : Less Than 3 Seconds Height, Weight, BMI Height: 5'5.00" Weight: 177lbs. 0.0oz. 80.044354kq; 29.00 BMI Method: General Appearance: No Apparent Distress, WD/WN, Anxious (SLIGHTLY HYPERVENTILATING) HEENT: PERRL/EOMI Neck: Full Range of Motion, Normal Inspection, Non Tender, Supple; No Carotid Bruit, No JVD Respiratory: Normal Breath Sounds, No Accessory Muscle Use, No Respiratory Distress, Other (MILD LEFT UPPER CHEST TENDERNESS) Cardiovascular: Regular Rate, Rhythm, No Edema, No JVD, No Murmur, Normal Peripheral Pulses Gastrointestinal: Normal Bowel Sounds, Non Tender, Soft Extremity: Normal Capillary Refill, Normal Inspection, Normal Range of Motion, Non Tender, No Calf Tenderness, No Pedal Edema Neurologic/Psychiatric: Alert, Oriented x3 (BUT POOR MEMORY), No Motor/Sensory Deficits, qa consultant II-XII Norm as Tested, Other (ANXIOUS) Skin: Normal Color, Warm/Dry; No Rash Progress/Results/Core Measures Results/Orders Lab Results Laboratory Tests Test 02/24/23 10:50 02/24/23 11:10 02/24/23 13:09 Range/Units Prothrombin Time 13.5 12.2-14.7 SEC INR Comment 1.0 0.8-1.4 Activated Partial Thromboplast Time 27 24-35 SEC D-Dimer 0.41 0.00-0.49 UG/ML Sodium Level 138 135-145 MMOL/L Potassium Level 3.9 3.6-5.0 MMOL/L Chloride Level 104 98-107 MMOL/L Carbon Dioxide Level 24 21-32 MMOL/L Anion Gap 10 5-14 MMOL/L Blood Urea Nitrogen 11 7-18 MG/DL Creatinine 0.72 0.60-1.30 MG/DL Estimat Glomerular Filtration Rate 83 BUN/Creatinine Ratio 15 Glucose Level 174 H 70-105 MG/DL Calcium Level 9.9 8.5-10.1 MG/DL Corrected Calcium 9.8 8.5-10.1 MG/DL Magnesium Level 1.8 1.6-2.4 MG/DL Total Bilirubin 0.3 0.1-1.0 MG/DL Aspartate Amino Transf (AST/SGOT) 9 5-34 U/L Alanine Aminotransferase (ALT/SGPT) 15 0-55 U/L Alkaline Phosphatase 47 40-136 U/L Total Creatine Kinase 27 L 29-168 U/L Creatine Kinase MB 0.8 <6.6 NG/ML Myoglobin 25.1 10.0-92.0 NG/ML Troponin I < 0.028 < 0.028 <0.028 NG/ML Total Protein 7.2 6.4-8.2 GM/DL Albumin 4.1 3.2-4.5 GM/DL Amylase Level 42 25-125 U/L Lipase 32 8-78 U/L White Blood Count 8.8 4.3-11.0 10^3/uL Red Blood Count 4.28 3.80-5.11 10^6/uL Hemoglobin 13.4 11.5-16.0 g/dL Hematocrit 41 35-52 % Mean Corpuscular Volume 96 80-99 fL Mean Corpuscular Hemoglobin 31 25-34 pg Mean Corpuscular Hemoglobin Concent 33 32-36 g/dL Red Cell Distribution Width 12.1 10.0-14.5 % Platelet Count 193 130-400 10^3/uL Mean Platelet Volume 10.8 9.0-12.2 fL Immature Granulocyte % (Auto) 1 % Neutrophils (%) (Auto) 53 42-75 % Lymphocytes (%) (Auto) 32 12-44 % Monocytes (%) (Auto) 10 0-12 % Eosinophils (%) (Auto) 5 0-10 % Basophils (%) (Auto) 0 0-10 % Neutrophils # (Auto) 4.7 1.8-7.8 10^3/uL Lymphocytes # (Auto) 2.8 1.0-4.0 10^3/uL Monocytes # (Auto) 0.9 0.0-1.0 10^3/uL Eosinophils # (Auto) 0.4 H 0.0-0.3 10^3/uL Basophils # (Auto) 0.0 0.0-0.1 10^3/uL Immature Granulocyte # (Auto) 0.1 0.0-0.1 10^3/uL B-Type Natriuretic Peptide 56.6 <100.0 PG/ML My Orders Orders - SLIM ARMENTA DO Cbc With Automated Diff (02/24/23 10:37) Magnesium (02/24/23 10:37) Chest 1 View, Ap/Pa Only (02/24/23 10:37) Ekg Tracing (02/24/23 10:37) Comprehensive Metabolic Panel (02/24/23 10:37) Myoglobin Serum (02/24/23 10:37) Protime With Inr (02/24/23 10:37) Partial Thromboplastin Time (02/24/23 10:37) O2 (02/24/23 10:37) Monitor-Rhythm Ecg Trace Only (02/24/23 10:37) Ed Iv/Invasive Line Start (02/24/23 10:37) Creatine Kinase (02/24/23 10:37) Creatine Kinase Mb (02/24/23 10:37) Lipase (02/24/23 10:37) Amylase (02/24/23 10:37) Bnp Stanly (02/24/23 10:37) Fibrin Degradation Products (02/24/23 10:37) Troponin I Vibha (02/24/23 10:37) Aspirin Chewable Tablet (Aspirin Chewabl (02/24/23 10:45) Nitroglycerin Ointment (Nitroglycerin (02/24/23 10:52) Ct Angio Chest W (R/O Pe) (02/24/23 11:39) Iohexol Injection (Omnipaque 350 Mg/Ml 1 (02/24/23 12:00) Received Contrast (Hold Metformin- Contr (02/24/23 12:00) Ns (Ivpb) 100 Ml (Sodium Chloride 0.9% 1 (02/24/23 12:00) Fentanyl Injection (Fentanyl Injection (02/24/23 12:00) Hydralazine Injection (Hydralazine Injec (02/24/23 12:00) Troponin I Vibha (02/24/23 13:06) Medications Given in ED Vital Signs/I&O 02/24/23 02/24/23 02/24/23 10:50 10:54 14:30 Temp 37.0 Pulse 68 92 Resp 24 24 B/P (MAP) 194/93 (126) 132/68 Pulse Ox 96 96 93 O2 Delivery Nasal Cannula Room Air Room Air O2 Flow Rate 2.00 Blood Pressure Mean: 126 Progress Progress Note : Progress Note VITALS ON ARRIVAL: TEMP 37.0=98.6, HR 68, RR 24, BP 194/93 GIVEN: -ASPIRIN -NITROPASTE--NO RELIEF OF PAIN -HYDRALAZINE -FENTANYL NO DETERIORATION IN PT'S CONDITION DURING ER STAY LABS: -CBC NORMAL -CMP WITH GLUCOSE 174, OTHERWISE NORMAL -TROPONIN NEGATIVE X 2 -BNP NORMAL -COAGULATION STUDIES NORMAL -D-DIMER NEGATIVE EKG IS NORMAL CXR IS NORMAL CT CHEST ANGIOGRAM SHOWS NO ACUTE CHANGES PAIN IS GONE AND BP DOWN AT DISMISSAL--BP 132/68 AT DISMISSAL DISCUSSED TEST RESULTS, ANTICIPATED COURSE, SYMPTOMATIC TREATMENT, NEED FOR FOLLOW UP AND RETURN PRECAUTIONS REVIEWED PRIOR RECORDS INCLUDING ER VISITS, ADMITS/H&P'S/CONSULTS/DISCHARGE SUMMARIES, TESTS/PROCEDURES Initial ECG Impression Date: Feb 24, 2023 Initial ECG Impression Time: 10:43 Initial ECG Rate: 69 Initial ECG Rhythm: Normal Sinus Initial ECG Intervals: Normal Initial ECG Impression: Normal Initial ECG Comparisson: Unchanged Comment INTERPRETED BY ME Diagnostic Imaging Comments CXR--PER RADIOLOGIST REPORT AT 1137 Abnormal mediastinal contour para-aortic and at the AP window corresponds to fatty deposition present at earlier CT and when differing modality taken into account not clearly changed. There is some linear fibrosis and atelectasis in the upper lobe laterally unchanged from CT but progressed from the prior radiograph. No new pulmonary opacity, effusion or pneumothorax. IMPRESSION: May be similar to its the findings at recent CT with mediastinal fatty prominence and some streaky fibrotic scarring and/or atelectasis in the left apex correlated with the recent chest CT. No obvious change or acute appearing abnormality. CT CHEST ANGIOGRAM--PER RADIOLOGIST REPORT AT 1306 Findings: There is no identified pulmonary nodule or lung mass. There is mild dependent atelectasis and/or scarring in the lungs bilaterally. There is no otherwise noted focal airspace consolidation. There is no pneumothorax. There is no pleural effusion. There is very mild right lower lobe bronchiectasis. There is no identified pulmonary embolus. The heart is not enlarged. There is no pericardial effusion. There are atherosclerotic calcifications. There is no identified abnormally enlarged mediastinal, hilar, or axillary lymph node meeting CT size criteria for adenopathy. There is no identified acute bony abnormality. Impression: 1. No identified pulmonary embolus or other acute cardiopulmonary abnormality. Reviewed: Reviewed by Me Departure Impression Primary Impression: Chest pain Additional Impressions: HTN (hypertension) NIDDM Anxiety Memory impairment Disposition: HOME, SELF-CARE Condition: Improved Departure-Patient Inst. Decision time for Depature: 14:07 Referrals: LORETO GIBSON APRN (PCP) Primary Care Physician [facility]UEL (Family) Primary Care Physician NADJA GONZALES MD Patient Instructions: DASH Diet, High Blood Pressure ED, Chest Pain (DC) Add. Discharge Instructions: HOLD YOUR METFORMIN FOR THE NEXT 2 DAYS, THEN YOU MAY RESTART IT AFTER 2 DAYS INCREASE YOUR LOSARTAN TO 2 PILLS A DAY YOU MAY TAKE TYLENOL NEEDED FOR PAIN FOLLOW UP WITH DR. GONZALES, [facility], NEXT WEEK FOR FURTHER CARE RETURN TO ER IF SYMPTOMS WORSEN All discharge instructions reviewed with patient and/or family. Voiced understanding. SLIM ARMENTA DO Feb 24, 2023 11:39
[2023-02-24] MEDS ORDERED: IOHEXOL 350 MG/ML 100 ML (OMNIPAQUE 350) VIAL IV ONE (12:00)
[2023-02-24] MEDS ORDERED: fentaNYL INJECTION 100 MCG/2 ML VIAL IVP ONE (12:00)
[2023-02-24] MEDS ORDERED: NS 100 ML (IVPB) BAG IV ONE (12:00)
[2023-02-24] MEDS ORDERED: HOLD METFORMIN - RECEIVED CONTRAST 20 ML VIAL IV SCH (12:00)
[2023-02-24] MEDS ORDERED: hydrALAZINE INJECTION 20 MG/ML VIAL IV ONE (12:00)
--- NOTE | 2023-02-24 13:00 | Diagnostic Imaging Report ---
Exam: CT angiography chest with intravenous contrast. Date: February 24, 2023. Indication: 82-year-old female, chest pain. Dyspnea on exertion. Comparison: Chest radiograph February 24, 2023. Technique: Axial CT angiographic images of the chest were obtained with intravenous contrast. Coronal and sagittal reformats were obtained and provided. All CT scans use one or more of the following dose optimizing techniques: automated exposure control, MA and/or KvP adjustment based on patient size and exam type or iterative reconstruction. Findings: There is no identified pulmonary nodule or lung mass. There is mild dependent atelectasis and/or scarring in the lungs bilaterally. There is no otherwise noted focal airspace consolidation. There is no pneumothorax. There is no pleural effusion. There is very mild right lower lobe bronchiectasis. There is no identified pulmonary embolus. The heart is not enlarged. There is no pericardial effusion. There are atherosclerotic calcifications. There is no identified abnormally enlarged mediastinal, hilar, or axillary lymph node meeting CT size criteria for adenopathy. There is no identified acute bony abnormality. Impression: 1. No identified pulmonary embolus or other acute cardiopulmonary abnormality. Dictated by: Dictated on workstation # [id number]
[2023-02-24 14:30] VITALS: BP 132/68
== END 2023-02-24 14:40 | disposition home or self-care (01) ==
LOC: EDUNIT# 10:35 → ER 10:36
DX: I10 Essential (primary) hypertension (principal); F41.9 Anxiety disorder, unspecified; E11.9 Type 2 diabetes mellitus without complications; R41.3 Other amnesia; Z91.040 Latex allergy status
CPT/HCPCS: 36415; 71045; 71275; 80053; 82150; 82550; 82553; 83690; 83735; 83874; 83880; 84484; 85025; 85379; 85610; 85730; 93005; 93041